=== PATIENT | female | born 1945 | race Two or more races ===

== ENCOUNTER 2019-01-02 12:06 | Observation (INO) | payer SELFPAY ==
--- NOTE | 2019-01-02 12:32 | ER Document Report ---
ED Medical Screen (RME) - General Chief Complaint: General Weakness Stated Complaint: FEVER Time Seen by Provider: 01/02/19 12:24 Mode of Arrival: Wheelchair Information source: Relative Notes: Patient presents with family with complaints of weakness and feeling off balance. Daughter states that patient is not able to walk because of the weakness. Patient does complain of some nausea no vomiting. Patient without any chest pain or shortness of breath. Patient does complain of numbness to fingers of left hand. Patient has had symptoms for the past 3 days. I have greeted and performed a rapid initial assessment of this patient. A comprehensive ED assessment and evaluation of the patient, analysis of test results and completion of the medical decision making process will be conducted by additional ED providers. TRAVEL OUTSIDE OF THE [place] IN LAST 30 DAYS: No - Related Data Allergies/Adverse Reactions: No Known Allergies Allergy (Verified 01/02/19 12:08) Physical Exam - Vital signs Vitals: Temp Pulse Resp BP Pulse Ox 98.0 F 75 14 145/80 H 95 01/02/19 12:15 01/02/19 12:15 01/02/19 12:15 01/02/19 12:15 01/02/19 12:15 - General General appearance: Alert Notes: Generalized weakness, subtle loss of left side nasolabial fold as compared to the right. - Cardiovascular Rhythm: Regular Heart sounds: S1 appreciated, S2 appreciated Course - Vital Signs Vital signs: Temp Pulse Resp BP Pulse Ox 98.0 F 75 14 145/80 H 95 01/02/19 12:15 01/02/19 12:15 01/02/19 12:15 01/02/19 12:15 01/02/19 12:15
--- NOTE | 2019-01-02 13:04 | RADIOLOGY REPORT (SQ) ---
EXAM DESCRIPTION: CT HEAD WITHOUT COMPLETED DATE/TIME: 01/02/2019 12:43 pm REASON FOR STUDY: weakness, numbness to L fingers COMPARISON: None. TECHNIQUE: Axial images acquired through the brain without intravenous contrast. Images reviewed wi th bone, brain and subdural windows. Additional sagittal and coronal reconstructions were generated. Images stored on PACS. All CT scanners at this facility use dose modulation, iterative reconstruction, and/or weight based d osing when appropriate to reduce radiation dose to as low as reasonably achievable (ALARA). [facility]: Dose Right [facility]: CareDose [facility]: Dose Right [facility]: Teradose 4D [facility]: Smart [employer] RADIATION DOSE: CT Rad equipment meets quality standard of care and radiation dose reduction techniq ues were employed. CTDIvol: 53.2 mGy. DLP: 1044 mGy-cm. mGy. LIMITATIONS: None. FINDINGS: VENTRICLES: Normal size and contour. CEREBRUM: No masses. No hemorrhage. No midline shift. No evidence for acute infarction. Normal gra y/white matter differentiation. No areas of low density in the white matter. CEREBELLUM: No masses. No hemorrhage. No alteration of density. No evidence for acute infarction. EXTRAAXIAL SPACES: No fluid collections. No masses. ORBITS AND GLOBE: No intra- or extraconal masses. Normal contour of globe without masses. CALVARIUM: No fracture. PARANASAL SINUSES: No fluid or mucosal thickening. SOFT TISSUES: No mass or hematoma. OTHER: No other significant finding. IMPRESSION: No acute intracranial pathology. EVIDENCE OF ACUTE STROKE: NO. COMMENT: Quality ID # [id number]: Final reports with documentation of one or more dose reduction techniques (e.g., Automated exposure control, adjustment of the mA and/or kV according to patient size, use of iterative reconstruction technique) TECHNICAL DOCUMENTATION: JOB ID: [id number] [employer]- All Rights Reserved Reading location - IP/workstation name: [email or web address]
--- NOTE | 2019-01-02 13:07 | RADIOLOGY REPORT (SQ) ---
EXAM DESCRIPTION: CHEST SINGLE VIEW COMPLETED DATE/TIME: 01/02/2019 12:45 pm REASON FOR STUDY: weakness, numbness to L fingers COMPARISON: None. EXAM PARAMETERS: NUMBER OF VIEWS: One view. TECHNIQUE: Single frontal radiographic view of the chest acquired. RADIATION DOSE: NA LIMITATIONS: None. FINDINGS: LUNGS AND PLEURA: No opacities, masses or pneumothorax. No pleural effusion. MEDIASTINUM AND HILAR STRUCTURES: No masses. Contour normal. HEART AND VASCULAR STRUCTURES: Heart normal in size. Normal vasculature. BONES: No acute findings. HARDWARE: None in the chest. OTHER: No other significant finding. IMPRESSION: NO ACUTE RADIOGRAPHIC FINDING IN THE CHEST. TECHNICAL DOCUMENTATION: JOB ID: [id number] [employer]- All Rights Reserved Reading location - IP/workstation name: [email or web address]
[2019-01-02 13:24] LABS: ABSOLUTE LYMPHOCYTES (AUTO) 2.2 10^3/uL (0.5-4.7); ABSOLUTE MONOCYTES (AUTO) 0.7 10^3/uL (0.1-1.4); ABSOLUTE NEUT (AUTO) 6.8 10^3/uL (1.7-8.2); BASOPHILS % (AUTO) 0.5 % (0-2); EOSINOPHILS % (AUTO) 0.4 % (0-6); HEMATOCRIT 43.9 % (36.0-47.0); HEMOGLOBIN 14.7 g/dL (12.0-15.5); LYMPHOCYTES % (AUTO) 22.3 % (13-45); MEAN CORPUSCULAR HEMOGLOBIN 27.9 pg (27.0-33.4); MEAN CORPUSCULAR HGB CONC 33.4 g/dL (32.0-36.0); MEAN CORPUSCULAR VOLUME 84 fl (80-97); MONOCYTES % (AUTO) 7.4 % (3-13); PLATELET COUNT 283 10^3/uL (150-450); RED BLOOD COUNT 5.26 10^6/uL (3.72-5.28); RED CELL DISTRIBUTION WIDTH 13.2 % (11.5-14.0); SEGMENTED NEUTROPHILS % (AUTO) 69.4 % (42-78); TOTAL CELLS COUNTED % (AUTO) 100 %; WHITE BLOOD COUNT 9.8 10^3/uL (4.0-10.5)
[2019-01-02 13:43] LABS: INTERNATIONAL RATION (INR) 1.04; PROTHROMBIN TIME 13.6 SEC (11.4-15.4)
[2019-01-02 13:44] LABS: PARTIAL THROMBOPLASTIN TIME 29.4 SEC (23.5-35.8)
[2019-01-02 13:55] LABS: ALANINE AMINOTRANSFERASE 32 U/L (9-52); ALBUMIN 4.7 g/dL (3.5-5.0); ALKALINE PHOSPHATASE 80 U/L (38-126); ANION GAP 10 (5-19); ASPARTATE AMINO TRANSFERASE 33 U/L (14-36); BILIRUBIN,DIRECT 0.2 mg/dL (0.0-0.4); BILIRUBIN,TOTAL 0.6 mg/dL (0.2-1.3); BLOOD UREA NITROGEN 12 mg/dL (7-20); CALCIUM 10.3 mg/dL (8.4-10.2); CARBON DIOXIDE 29 mmol/L (22-30); CHLORIDE 101 mmol/L (98-107); CREATINE KINASE 50 U/L (30-135); GLUCOSE 121 mg/dL (75-110); POTASSIUM 4.4 mmol/L (3.6-5.0); SODIUM 139.7 mmol/L (137-145); TOTAL PROTEIN 8.2 g/dL (6.3-8.2)
[2019-01-02 14:07] LABS: TROPONIN I < 0.012 ng/mL
--- NOTE | 2019-01-02 14:18 | ER Document Report ---
ED General - General Chief Complaint: General Weakness Stated Complaint: FEVER Time Seen by Provider: 01/02/19 12:24 Mode of Arrival: Wheelchair Notes: Patient is and indicates that she only speaks Yoruba. She is here with family members who are translating in her very fluent in [place] and Yoruba. Patient seems as if she understands quite a bit of what I am asking her as she is starting to answer before the family can ask her questions. Patient brought in because she has been running a fever since Tuesday. She has not had any strength, feeling very weak, difficulty walking. Has no appetite and not eating or drinking much. Yesterday, she seemed to have some problem with her balance. Has indicated that she is nauseated, but has not vomited. She her last bowel movement was this morning. Has not seen any blood in stools or in vomitus. She is had a little bit of a cough, but denies any chest pains. Complains of pain in the anterior aspect of both thighs, but not elsewhere of the lower extremities. Has no significant past medical history except for depression. Not on any prescription medications. TRAVEL OUTSIDE OF THE [place] IN LAST 30 DAYS: No - Related Data Allergies/Adverse Reactions: No Known Allergies Allergy (Verified 01/02/19 12:08) Past Medical History - General Information source: Relative - Social History Smoking Status: Never Smoker Chew tobacco use (# tins/day): No Frequency of alcohol use: None Drug Abuse: None Family History: Reviewed & Not Pertinent Patient has suicidal ideation: No Patient has homicidal ideation: No - Past Medical History Cardiac Medical History: Denies: Hx Coronary Artery Disease Psychiatric Medical History: Reports: Hx Depression Past Surgical History: Reports: Hx Section - x2 Review of Systems - Review of Systems Notes: REVIEW OF SYSTEMS: CONSTITUTIONAL : Reportedly has had fever. Generalized weakness. Poor appetite. EENT: Denies eye, ear, nose or mouth or throat pain or other symptoms. CARDIOVASCULAR: Denies chest pain. RESPIRATORY: Only has "a little cough", but denies much chest congestion, or shortness of breath. GASTROINTESTINAL: Some nausea but no abdominal pain or , vomiting, or diarrhea. GENITOURINARY: Denies difficulty or painful urinating, urinary frequency, blood in urine. MUSCULOSKELETAL: Denies back or neck pain. Denies joint pain or swelling. Complains of pain in the anterior aspect of both thighs, not the lower legs from the knees down. SKIN: Denies rash or skin lesions. NEUROLOGICAL: Denies LOC or altered mental status. Denies headache. Denies sensory loss or motor deficits. ALL OTHER SYSTEMS REVIEWED AND NEGATIVE. Physical Exam - Vital signs Vitals: Temp Pulse Resp BP Pulse Ox 98.0 F 75 14 145/80 H 95 01/02/19 12:15 01/02/19 12:15 01/02/19 12:15 01/02/19 12:15 01/02/19 12:15 Notes: PHYSICAL EXAMINATION: GENERAL: Well-appearing, in no acute distress. HEAD: Atraumatic, normocephalic. EYES: Pupils equal round and reactive to light, extraocular movements intact. ENT: oropharynx clear without exudates. Moist mucous membranes. NECK: Normal range of motion, supple. No bruits heard. LUNGS: Breath sounds clear and equal bilaterally. HEART: Regular rate and rhythm without murmurs. ABDOMEN: Soft, nontender. No guarding or rebound. No masses. BACK: No tenderness throughout entire back. EXTREMITIES: Normal range of motion without pain. NEUROLOGICAL: Awake and alert and, according to the family, oriented x3. Moves all 4 extremities equally. Good pattern hand bilaterally. PSYCH: Normal mood, normal affect. SKIN: Warm, dry, no rashes. Course - Re-evaluation Re-evalutation: 01/02/19 16:22 Patient's entire lab and imaging work-up are all essentially normal. No evidence of infection in her urine or chest. Blood work are all normal. CT scan of her head shows no stroke. I am at a loss for reason for the patient to be so weak. I attempted to have her stand with assistance by me and the nurse and she is not able to bear weight on either leg. She does not appear to have any lateralizing signs, but generalized weakness. Spoke with the hospitalist who will admit the patient for further evaluation. - Vital Signs Vital signs: Temp Pulse Resp BP Pulse Ox 98.0 F 75 22 H 124/74 99 01/02/19 12:15 01/02/19 12:15 01/02/19 16:01 01/02/19 16:00 01/02/19 16:01 - Laboratory Result Diagrams: 01/02/19 13:10 01/02/19 13:10 Laboratory results interpreted by me: 01/02/19 13:10 Glucose 121 H Calcium 10.3 H - EKG Interpretation by Me EKG shows normal: Sinus rhythm Rate: Normal Rhythm: NSR When compared to previous EKG there are: No significant change Discharge - Discharge Clinical Impression: Weakness Condition: Stable Disposition: ADMITTED INPATIENT Admitting Provider: meng Unit Admitted: Medical Floor
[2019-01-02 16:02] LABS: COLOR,URINE YELLOW
[2019-01-02 16:03] LABS: APPEARANCE,URINE CLEAR; BILIRUBIN,URINE NEGATIVE (NEGATIVE); GLUCOSE, URINE NEGATIVE (NEGATIVE); KETONES,URINE NEGATIVE (NEGATIVE); NITRITE,URINE NEGATIVE (NEGATIVE); PROTEIN,URINE NEGATIVE (NEGATIVE); URINE SPECIFIC GRAVITY 1.007; UROBILINOGEN,URINE NEGATIVE mg/dL (<2.0)
[2019-01-02 16:04] LABS: LEUKOCYTE ESTERASE,URINE NEGATIVE (NEGATIVE)
[2019-01-02] MEDS ORDERED: TEMAZEPAM 7.5 MG CAPSULE PO PRN (17:03)
[2019-01-02] MEDS ORDERED: SCOPOLAMINE HYDROBROMIDE 1.5 MG PATCH.TD72 TD PRN (17:07)
--- NOTE | 2019-01-02 17:14 | PDOC H&P ---
History of Present Illness Admission Date/PCP: 01/02/19, none Patient complains of: vertigo type symptoms x 2 days History of Present Illness: GLADYS MURRAY is a 73 year old female patient is interviewed with family present and they translate for her. seems she was walking and at her baseline tuesday. tuesday she started having some issues walking. it does not seem to be strength or sensation related on exam. it sounds like dizziness from vertigo that is worsened depending on her position. its best in the supine position. she has not had this issues before. nothing else makes it better or worse. she denies other related symptoms. no cp/sob. chronic x 3-4 days now. Past Medical History Cardiac Medical History: Denies: Coronary Artery Disease Psychiatric Medical History: Reports: Depression Past Surgical History Past Surgical History: Reports: Section - x2 Social History Smoking Status: Never Smoker - Advance Directive Resuscitation Status: Full Code Family History Family History: Reviewed & Not Pertinent, Hypertension Parental Family History Reviewed: Yes Children Family History Reviewed: Yes Sibling(s) Family History Reviewed.: Yes Medication/Allergy Allergies/Adverse Reactions: No Known Allergies Allergy (Verified 01/02/19 12:08) Review of Systems Constitutional: ABSENT: chills, fever(s), headache(s), weight gain, weight loss Eyes: ABSENT: visual disturbances Ears: ABSENT: hearing changes Cardiovascular: ABSENT: chest pain, dyspnea on exertion, edema, orthropnea, palpitations Respiratory: ABSENT: cough, hemoptysis Gastrointestinal: ABSENT: abdominal pain, constipation, diarrhea, hematemesis, hematochezia, nausea, vomiting Genitourinary: ABSENT: dysuria, hematuria Musculoskeletal: ABSENT: joint swelling Integumentary: ABSENT: rash, wounds Neurological: PRESENT: vertigo. ABSENT: abnormal gait, abnormal speech, confusion, dizziness, focal weakness, syncope Psychiatric: ABSENT: anxiety, depression, homidical ideation, suicidal ideation Endocrine: ABSENT: cold intolerance, heat intolerance, polydipsia, polyuria Hematologic/Lymphatic: ABSENT: easy bleeding, easy bruising Physical Exam Vital Signs: Temp Pulse Resp BP Pulse Ox 98.0 F 75 22 H 124/74 99 01/02/19 12:15 01/02/19 12:15 01/02/19 16:01 01/02/19 16:00 01/02/19 16:01 Intake & Output 01/01/19 01/02/19 01/03/19 06:59 06:59 06:59 Weight 53.6 kg General appearance: PRESENT: no acute distress, well-developed, well-nourished Head exam: PRESENT: atraumatic, normocephalic Eye exam: PRESENT: conjunctiva pink, EOMI, PERRLA. ABSENT: scleral icterus Ear exam: PRESENT: normal external ear exam Neck exam: ABSENT: carotid bruit, JVD, lymphadenopathy, thyromegaly Respiratory exam: PRESENT: clear to auscultation zamzam. ABSENT: rales, rhonchi, wheezes Cardiovascular exam: PRESENT: RRR. ABSENT: diastolic murmur, rubs, systolic murmur Pulses: PRESENT: normal dorsalis pedis pul Vascular exam: PRESENT: normal capillary refill GI/Abdominal exam: PRESENT: normal bowel sounds, soft. ABSENT: distended, guarding, mass, organolmegaly, rebound, tenderness Extremities exam: PRESENT: full ROM. ABSENT: calf tenderness, clubbing, pedal edema Musculoskeletal exam: PRESENT: full ROM Neurological exam: PRESENT: alert, awake, oriented to person, oriented to place, oriented to time, oriented to situation, CN II-XII grossly intact. ABSENT: motor sensory deficit Results Laboratory Results: 01/02/19 13:10 01/02/19 13:10 01/02/19 01/02/19 01/02/19 13:10 13:10 14:15 WBC 9.8 RBC 5.26 Hgb 14.7 Hct 43.9 MCV 84 MCH 27.9 MCHC 33.4 RDW 13.2 Plt Count 283 Seg Neutrophils % 69.4 Lymphocytes % 22.3 Monocytes % 7.4 Eosinophils % 0.4 Basophils % 0.5 Absolute Neutrophils 6.8 Absolute Lymphocytes 2.2 Absolute Monocytes 0.7 Absolute Eosinophils 0.0 Absolute Basophils 0.0 Sodium 139.7 Potassium 4.4 Chloride 101 Carbon Dioxide 29 Anion Gap 10 BUN 12 Creatinine 0.61 Est GFR ( Amer) > 60 Est GFR (Non-Af Amer) > 60 Glucose 121 H Calcium 10.3 H Total Bilirubin 0.6 AST 33 ALT 32 Alkaline Phosphatase 80 Total Protein 8.2 Albumin 4.7 Urine Color YELLOW Urine Appearance CLEAR Urine pH 5.0 Ur Specific [place] 1.007 Urine Protein NEGATIVE Urine Glucose (UA) NEGATIVE Urine Ketones NEGATIVE Urine Blood NEGATIVE Urine Nitrite NEGATIVE Ur Leukocyte Esterase NEGATIVE 01/02/19 01/02/19 13:10 13:10 Creatine Kinase 50 CK-MB (CK-2) 0.80 Troponin I < 0.012 Impressions: Chest X-Ray 01/02/19 12:30 IMPRESSION: NO ACUTE RADIOGRAPHIC FINDING IN THE CHEST. Head CT 01/02/19 12:30 IMPRESSION: No acute intracranial pathology. EVIDENCE OF ACUTE STROKE: NO. Assessment and Plan - Diagnosis (1) Vertigo Is this a current diagnosis for this admission?: Yes Plan: seems to be BPPV. needs moises hallpike maneuver. will ask PT to evaluate and see if they have staff that can perform. will order prn zofran and scopolamine for symptom relief. (2) Weakness Is this a current diagnosis for this admission?: Yes Plan: originally thought to be weakness seems to be related to vertigo. likely misinterpreted/mistaken because of language barrier - Time Time Spent with patient: 25-34 minutes Medications reviewed and adjusted accordingly: Yes Anticipated discharge: Home - Plan Summary Plan Summary: see if we can get her treated and get her home tomorrow. observation.
--- NOTE | 2019-01-02 21:27 | EKG REPORT ---
SEVERITY:- ABNORMAL ECG - SINUS RHYTHM LEFT VENTRICULAR HYPERTROPHY : Confirmed by: Dionne Angulo MD 02-Jan-2019 21:25:57
[2019-01-02] MEDS: ACETAMINOPHEN 325 MG TABLET PO PRN (22:26)
[2019-01-03 06:49] LABS: HEMOGLOBIN 13.9 g/dL (12.0-15.5); MEAN CORPUSCULAR HGB CONC 33.8 g/dL (32.0-36.0); MEAN CORPUSCULAR VOLUME 83 fl (80-97); PLATELET COUNT 271 10^3/uL (150-450); RED BLOOD COUNT 4.95 10^6/uL (3.72-5.28); RED CELL DISTRIBUTION WIDTH 13.2 % (11.5-14.0); WHITE BLOOD COUNT 7.2 10^3/uL (4.0-10.5)
[2019-01-03 07:10] LABS: ANION GAP 7 (5-19); BLOOD UREA NITROGEN 13 mg/dL (7-20); CALCIUM 10.1 mg/dL (8.4-10.2); CARBON DIOXIDE 29 mmol/L (22-30); CHLORIDE 104 mmol/L (98-107); CHOLESTEROL 175.86 mg/dL (0-200); GLUCOSE 110 mg/dL (75-110); POTASSIUM 4.3 mmol/L (3.6-5.0); SODIUM 140.3 mmol/L (137-145); TRIGLYCERIDES 147 mg/dL (<150)
[2019-01-03 07:21] LABS: DIRECT LDL 117 mg/dL (<100)
[2019-01-03] MEDS: ONDANSETRON 4 MG TAB.RAPDIS PO PRN (08:13)
--- NOTE | 2019-01-03 15:44 | PDOC PROGRESS REPORT ---
Subjective Progress Note for:: 01/03/19 Subjective:: patient had moises hallpike performed on her earlier by PT and relieved most of her vertigo. she is able to stand, but still feels dizzy. she continues to use daughter as table cover folder. she is improving. the prn meds help with nausea. will move towards d/c in am Reason For Visit: SYNCOPE,WEAKNESS Physical Exam Vital Signs: Temp Pulse Resp BP Pulse Ox 98.7 F 81 14 138/87 H 98 01/03/19 12:18 01/03/19 12:18 01/03/19 12:18 01/03/19 12:18 01/03/19 12:18 Intake & Output 01/02/19 01/03/19 01/04/19 06:59 06:59 06:59 Weight 53.1 kg General appearance: PRESENT: no acute distress, well-developed, well-nourished Head exam: PRESENT: atraumatic, normocephalic Eye exam: PRESENT: conjunctiva pink, EOMI, PERRLA. ABSENT: scleral icterus Ear exam: PRESENT: normal external ear exam Mouth exam: PRESENT: moist, tongue midline Neck exam: ABSENT: carotid bruit, JVD, lymphadenopathy, thyromegaly Respiratory exam: PRESENT: clear to auscultation zazmam. ABSENT: rales, rhonchi, wheezes Cardiovascular exam: PRESENT: RRR. ABSENT: diastolic murmur, rubs, systolic murmur Pulses: PRESENT: normal dorsalis pedis pul Vascular exam: PRESENT: normal capillary refill GI/Abdominal exam: PRESENT: normal bowel sounds, soft. ABSENT: distended, guarding, mass, organolmegaly, rebound, tenderness Rectal exam: PRESENT: deferred Extremities exam: PRESENT: full ROM. ABSENT: calf tenderness, clubbing, pedal edema Neurological exam: PRESENT: alert, awake, oriented to person, oriented to place, oriented to time, oriented to situation, CN II-XII grossly intact. ABSENT: motor sensory deficit Psychiatric exam: PRESENT: appropriate affect, normal mood. ABSENT: homicidal ideation, suicidal ideation Skin exam: PRESENT: dry, intact, warm. ABSENT: cyanosis, rash Results Laboratory Results: 01/03/19 06:31 01/03/19 06:31 07/09/19 07/10/19 07/10/19 14:15 06:31 06:31 WBC 7.2 RBC 4.95 Hgb 13.9 Hct 41.0 MCV 83 MCH 28.0 MCHC 33.8 RDW 13.2 Plt Count 271 Sodium 140.3 Potassium 4.3 Chloride 104 Carbon Dioxide 29 Anion Gap 7 BUN 13 Creatinine 0.56 Est GFR ( Amer) > 60 Est GFR (Non-Af Amer) > 60 Glucose 110 Calcium 10.1 Magnesium 2.0 Triglycerides 147 Cholesterol 175.86 LDL Cholesterol Direct 117 H VLDL Cholesterol 29.0 HDL Cholesterol 39 L TSH Urine Color YELLOW Urine Appearance CLEAR Urine pH 5.0 Ur Specific [place] 1.007 Urine Protein NEGATIVE Urine Glucose (UA) NEGATIVE Urine Ketones NEGATIVE Urine Blood NEGATIVE Urine Nitrite NEGATIVE Ur Leukocyte Esterase NEGATIVE 01/03/19 06:31 WBC RBC Hgb Hct MCV MCH MCHC RDW Plt Count Sodium Potassium Chloride Carbon Dioxide Anion Gap BUN Creatinine Est GFR ( Amer) Est GFR (Non-Af Amer) Glucose Calcium Magnesium Triglycerides Cholesterol LDL Cholesterol Direct VLDL Cholesterol HDL Cholesterol TSH 2.28 Urine Color Urine Appearance Urine pH Ur Specific [place] Urine Protein Urine Glucose (UA) Urine Ketones Urine Blood Urine Nitrite Ur Leukocyte Esterase 01/02/19 01/02/19 13:10 13:10 Creatine Kinase 50 CK-MB (CK-2) 0.80 Troponin I < 0.012 Impressions: Chest X-Ray 01/02/19 12:30 IMPRESSION: NO ACUTE RADIOGRAPHIC FINDING IN THE CHEST. Head CT 01/02/19 12:30 IMPRESSION: No acute intracranial pathology. EVIDENCE OF ACUTE STROKE: NO. Assessment and Plan - Diagnosis (1) Vertigo Is this a current diagnosis for this admission?: Yes Plan: seems to be BPPV. better after moises hallpike maneuver by PT. prn zofran and scopolamine for symptom relief. (2) Weakness Is this a current diagnosis for this admission?: Yes Plan: originally thought to be bilateral lower ext weakness seems to be related to vertigo. likely misinterpreted/mistaken because of language barrier (3) Prediabetes Is this a current diagnosis for this admission?: Yes Plan: a1c 6.1. risk of treating vs likely complications is relative. defer to outpatient pcp - Time Time Spent with patient: Less than 15 minutes Medications reviewed and adjusted accordingly: Yes Within: within 24 hours
--- NOTE | 2019-01-03 18:17 | RADIOLOGY REPORT (SQ) ---
EXAM DESCRIPTION: CT HEAD WITHOUT COMPLETED DATE/TIME: 01/03/2019 6:04 pm REASON FOR STUDY: Signs of Stroke COMPARISON: 01/02/2019 TECHNIQUE: Axial images acquired through the brain without intravenous contrast. Images reviewed wit h bone, brain and subdural windows. Images stored on PACS. All CT scanners at this facility use dose modulation, iterative reconstruction, and/or weight based d osing when appropriate to reduce radiation dose to as low as reasonably achievable (ALARA). [facility]: Dose Right [facility]: CareDose [facility]: Dose Right [facility]: Teradose 4D [facility]: Smart [employer] RADIATION DOSE: CT Rad equipment meets quality standard of care and radiation dose reduction techniq ues were employed. CTDIvol: 53.2 mGy. DLP: 991 mGy-cm.. LIMITATIONS: None. FINDINGS: VENTRICLES: Normal size and contour. CEREBRUM: No masses. No hemorrhage. No midline shift. Age appropriate white matter. No evidence for a cute infarction. CEREBELLUM: No masses. No hemorrhage. No alteration of density. No evidence for acute infarction. EXTRA-AXIAL SPACES: No fluid collections. ORBITS AND GLOBE: No intra- or extraconal masses. Normal contour of globe without masses. CALVARIUM: No fracture. PARANASAL SINUSES: Left maxillary sinus fluid. SOFT TISSUES: No mass or hematoma. OTHER: No other significant finding. IMPRESSION: NO ACUTE INTRACRANIAL FINDINGS.Left maxillary sinus fluid. EVIDENCE OF ACUTE STROKE: NO. TECHNICAL DOCUMENTATION: JOB ID: [id number] Quality ID # [id number]: Final reports with documentation of one or more dose reduction techniques (e.g., Au tomated exposure control, adjustment of the mA and/or kV according to patient size, use of iterative reconstruction technique) 2010 [employer]- All Rights Reserved Reading location - IP/workstation name: [email or web address]
[2019-01-03] MEDS: ACETAMINOPHEN 325 MG TABLET PO PRN (19:24)
[2019-01-03] MEDS: ASPIRIN 325 MG TABLET PO SCH (19:24)
[2019-01-04] MEDS: ASPIRIN 325 MG TABLET PO SCH (10:00)
--- NOTE | 2019-01-04 11:15 | RADIOLOGY REPORT (SQ) ---
EXAM DESCRIPTION: MRI HEAD WITHOUT COMPLETED DATE/TIME: 01/04/2019 10:42 am REASON FOR STUDY: stroke COMPARISON: 01/03/2019 TECHNIQUE: Multiplanar imaging includes non-contrasted T1, T2, FLAIR, and diffusion with ADC map seq uences. Images stored on PACS. LIMITATIONS: None. FINDINGS: ANATOMY: No anomalies. Normal vascular flow voids. Pituitary fossa normal. CSF SPACES: Normal in size and contour. No hemorrhage. CEREBRUM: Sulci and gyri normal in size and contour. Normal white matter signal on FLAIR imaging. No evidence of hemorrhage, mass, or extraaxial fluid collection. POSTERIOR FOSSA: No signal alteration. No hemorrhage. No edema, masses or mass effect. Internal sandro tory canals, cerebello-pontine angles, mastoids normal. DIFFUSION IMAGING: Negative for acute or sub-acute infarction. ORBITS: No masses. Globes normal. PARANASAL SINUSES: No fluid levels. Mucosa normal. OTHER: No other significant finding. IMPRESSION: NORMAL MRI OF THE BRAIN WITHOUT INTRAVENOUS GADOLINIUM CONTRAST. EVIDENCE OF ACUTE STROKE: NO. TECHNICAL DOCUMENTATION: JOB ID: [id number] [employer] All Rights Reserved Reading location - IP/workstation name: [email or web address]
--- NOTE | 2019-01-04 15:16 | PDOC PROGRESS REPORT ---
Subjective Subjective:: patient had episode of unilateral right sided weakness yesterday evening. CT Head was negative last night and MRI was negative today. Seems to be more of the perception of weakness than actual weakness. denies previous episodes. appetite has been poor for several weeks now. denies recent illness. vertigo symptoms are again bothering her. they are relieved with zofran Reason For Visit: SYNCOPE,WEAKNESS Physical Exam Vital Signs: Temp Pulse Resp BP Pulse Ox 98.4 F 74 14 126/75 H 93 01/04/19 11:43 01/04/19 11:43 01/04/19 11:43 01/04/19 11:43 01/04/19 11:43 Intake & Output 01/03/19 01/04/19 01/05/19 06:59 06:59 06:59 Output Total 400 Balance -400 Weight 53.1 kg 52 kg General appearance: PRESENT: no acute distress, well-developed, well-nourished Head exam: PRESENT: atraumatic, normocephalic Eye exam: PRESENT: conjunctiva pink, EOMI, PERRLA. ABSENT: scleral icterus Ear exam: PRESENT: normal external ear exam Mouth exam: PRESENT: moist, tongue midline Neck exam: ABSENT: carotid bruit, JVD, lymphadenopathy, thyromegaly Respiratory exam: PRESENT: clear to auscultation zamzam. ABSENT: rales, rhonchi, wheezes Cardiovascular exam: PRESENT: RRR. ABSENT: diastolic murmur, rubs, systolic murmur Pulses: PRESENT: normal dorsalis pedis pul Vascular exam: PRESENT: normal capillary refill GI/Abdominal exam: PRESENT: normal bowel sounds, soft. ABSENT: distended, guarding, mass, organolmegaly, rebound, tenderness Rectal exam: PRESENT: deferred Extremities exam: PRESENT: full ROM. ABSENT: calf tenderness, clubbing, pedal edema Neurological exam: PRESENT: alert, awake, oriented to person, oriented to place, oriented to time, oriented to situation, CN II-XII grossly intact. ABSENT: motor sensory deficit Psychiatric exam: PRESENT: appropriate affect, normal mood. ABSENT: homicidal ideation, suicidal ideation Skin exam: PRESENT: dry, intact, warm. ABSENT: cyanosis, rash Results Laboratory Results: 01/03/19 06:31 01/03/19 06:31 01/02/19 01/02/19 13:10 13:10 Creatine Kinase 50 CK-MB (CK-2) 0.80 Troponin I < 0.012 Impressions: Chest X-Ray 01/02/19 12:30 IMPRESSION: NO ACUTE RADIOGRAPHIC FINDING IN THE CHEST. Head CT 01/03/19 17:43 IMPRESSION: NO ACUTE INTRACRANIAL FINDINGS.Left maxillary sinus fluid. EVIDENCE OF ACUTE STROKE: NO. Head MRI 01/04/19 07:01 IMPRESSION: NORMAL MRI OF THE BRAIN WITHOUT INTRAVENOUS GADOLINIUM CONTRAST. EVIDENCE OF ACUTE STROKE: NO. Assessment and Plan - Diagnosis (1) Vertigo Is this a current diagnosis for this admission?: Yes Plan: thought to be BPPV, she reported improvement with moises hallpike maneuver, but now reporting zofran helps, and symptoms have returned (2) Weakness Is this a current diagnosis for this admission?: Yes Plan: unilateral, right sided perceived weakness. strength appears to be normal BLUE and BLLE. MRI and CT head negative. unsure of cause. check vitamin levels. could be flare of something like MS, although most disease process would have presented by now (3) Prediabetes Is this a current diagnosis for this admission?: Yes Plan: a1c 6.2. risk of treating vs likely complications is relative. defer to ou tpatient pcp - Time Time Spent with patient: 15-24 minutes Medications reviewed and adjusted accordingly: Yes Anticipated discharge: Home - Plan Summary Plan Summary: make sure that what is causing the weakness is not progressing, and that patient is stable for d/c
[2019-01-04] MEDS: ACETAMINOPHEN 325 MG TABLET PO PRN (21:15)
[2019-01-05 07:24] LABS: CHOLESTEROL 189.28 mg/dL (0-200); CREATINE KINASE 38 U/L (30-135); TRIGLYCERIDES 127 mg/dL (<150)
[2019-01-05 07:36] LABS: DIRECT LDL 124 mg/dL (<100)
[2019-01-05 08:25] LABS: FOLATE > 20.00 ng/mL (>2.76)
[2019-01-05] MEDS: ASPIRIN 325 MG TABLET PO SCH (09:08)
--- NOTE | 2019-01-05 10:30 | RADIOLOGY REPORT (SQ) ---
EXAM DESCRIPTION: CAROTID DOPPLER COMPLETED DATE/TIME: 01/04/2019 9:51 pm REASON FOR STUDY: stroke COMPARISON: None. TECHNIQUE: Grayscale ultrasound, Doppler velocity and spectra, and color Doppler images acquired of the extra-cranial carotid and vertebral arteries. Images stored on PACS. LIMITATIONS: None. FINDINGS: RIGHT CAROTID CCA Velocities: Within normal limits. ICA Velocities Peak systolic 0.56 m/s. End diastolic 0.18 m/s. Proximal ICA/CCA peak systolic ratio 0.9. Intimal thickening. LEFT CAROTID CCA Velocities: Within normal limits. ICA Velocities Peak systolic 0.67 m/s. End diastolic 0.22 m/s. Proximal ICA/CCA peak systolic ratio 1.6. Intimal thickening. VERTEBRAL ARTERIES: Antegrade flow. Normal waveforms. SUBCLAVIAN ARTERIES: Not imaged. OTHER: No other significant finding. IMPRESSION: NO HEMODYNAMICALLY SIGNIFICANT STENOSIS. COMMENT: Quality ID #[id number]: Velocity criteria are extrapolated from the diameter data as defined by t [place] Society of Radiologists in Ultrasound Consensus Conference. Radiology 2003: 229; 340-346. TECHNICAL DOCUMENTATION: JOB ID: [id number] [employer]- All Rights Reserved Reading location - IP/workstation name: [email or web address]
[2019-01-05] MEDS ORDERED: MECLIZINE HCL 12.5 MG TABLET PO PRN (13:14)
[2019-01-05] MEDS ORDERED: (PENDING PHARMACY ID) (Irbesartan [Avapro] 300 MG) PO SCH (15:30)
--- NOTE | 2019-01-05 16:52 | PDOC PROGRESS REPORT ---
Subjective Progress Note for:: 01/05/19 Subjective:: she is having RUE weakness today. other 3x strength is good. today its actually seems weak. will scan neck. continues to have vertigo will ask for help w/moises zhang pike maneuver. added meclizine for help with symptoms. unable to eat because of nausea. unable to stand because of nausea. bp high. restart home ARB Reason For Visit: SYNCOPE,WEAKNESS Physical Exam Vital Signs: Temp Pulse Resp BP Pulse Ox 98.7 F 74 16 148/83 H 96 01/05/19 12:00 01/05/19 14:00 01/05/19 12:00 01/05/19 12:00 01/05/19 12:00 Intake & Output 01/04/19 01/05/19 01/06/19 06:59 06:59 06:59 Intake Total 355 Output Total 400 640 400 Balance -400 -640 -45 Weight 52 kg 53.2 kg General appearance: PRESENT: cooperative, mild distress, thin Head exam: PRESENT: atraumatic, normocephalic Eye exam: PRESENT: conjunctiva pink, EOMI, PERRLA. ABSENT: scleral icterus Ear exam: PRESENT: normal external ear exam Mouth exam: PRESENT: moist, tongue midline Neck exam: ABSENT: carotid bruit, JVD, lymphadenopathy, thyromegaly Respiratory exam: PRESENT: clear to auscultation zamzam. ABSENT: rales, rhonchi, wheezes Cardiovascular exam: PRESENT: RRR. ABSENT: diastolic murmur, rubs, systolic murmur Pulses: PRESENT: normal dorsalis pedis pul Vascular exam: PRESENT: normal capillary refill GI/Abdominal exam: PRESENT: normal bowel sounds, soft. ABSENT: distended, guarding, mass, organolmegaly, rebound, tenderness Rectal exam: PRESENT: deferred Extremities exam: PRESENT: full ROM. ABSENT: calf tenderness, clubbing, pedal edema Musculoskeletal exam: PRESENT: full ROM, other - RUE full rom, normal sensation, but strength 4/5. Neurological exam: PRESENT: alert, awake, oriented to person, oriented to place, oriented to time, oriented to situation, CN II-XII grossly intact. ABSENT: motor sensory deficit Psychiatric exam: PRESENT: appropriate affect, normal mood. ABSENT: homicidal ideation, suicidal ideation Skin exam: PRESENT: dry, intact, warm. ABSENT: cyanosis, rash Results Laboratory Results: 01/03/19 06:31 01/03/19 06:31 01/05/19 01/05/19 06:13 06:13 Magnesium 2.2 Triglycerides 127 Cholesterol 189.28 LDL Cholesterol Direct 124 H VLDL Cholesterol 25.0 HDL Cholesterol 40 Vitamin B12 > 1000.0 H Folate > 20.00 TSH 0.93 01/02/19 01/02/19 01/05/19 13:10 13:10 06:13 Creatine Kinase 50 38 CK-MB (CK-2) 0.80 Troponin I < 0.012 Impressions: Chest X-Ray 01/02/19 12:30 IMPRESSION: NO ACUTE RADIOGRAPHIC FINDING IN THE CHEST. Head CT 01/03/19 17:43 IMPRESSION: NO ACUTE INTRACRANIAL FINDINGS.Left maxillary sinus fluid. EVIDENCE OF ACUTE STROKE: NO. Head MRI 01/04/19 07:01 IMPRESSION: NORMAL MRI OF THE BRAIN WITHOUT INTRAVENOUS GADOLINIUM CONTRAST. EVIDENCE OF ACUTE STROKE: NO. Carotid Doppler Study 01/04/19 09:00 IMPRESSION: NO HEMODYNAMICALLY SIGNIFICANT STENOSIS. Assessment and Plan - Diagnosis (1) Vertigo Is this a current diagnosis for this admission?: Yes Plan: unable to determine if moises hallpike ever performed. family originally said yes. today they say no.will re-consult PT for help with this. seems to be BPPV. symptomatic meds ordered. (2) Weakness Is this a current diagnosis for this admission?: Yes Plan: RUE today. on admission was BLLE. then its was Right side. no pattern. will scan neck to make sure that no physical obstructions. normal vitamin and electrolyte levels. continue to work with PT (3) Prediabetes Is this a current diagnosis for this admission?: Yes Plan: a1c 6.2. risk of treating vs likely complications is relative. defer to outpatient pcp - Time Time Spent with patient: 15-24 minutes Medications reviewed and adjusted accordingly: Yes Anticipated discharge: Home - Inpatient Certification Based on my medical assessment, after consideration of the patient's comorb idities, presenting symptoms, or acuity I expect that the services needed warrant INPATIENT care.: Yes I certify that my determination is in accordance with my understanding of Medicare's requirements for reasonable and necessary INPATIENT services [42 CFR 412.3e].: Yes
[2019-01-06] MEDS ORDERED: LOSARTAN POTASSIUM 50 MG TABLET PO SCH (10:00)
[2019-01-06] MEDS: ASPIRIN 325 MG TABLET PO SCH (10:49)
[2019-01-06] MEDS: ONDANSETRON 4 MG TAB.RAPDIS PO PRN (10:55)
--- NOTE | 2019-01-06 12:28 | RADIOLOGY REPORT (SQ) ---
EXAM DESCRIPTION: CERV SP 3 VIEW OR LESS COMPLETED DATE/TIME: 01/06/2019 8:39 am REASON FOR STUDY: right arm weakness COMPARISON: None. NUMBER OF VIEWS: Three views. TECHNIQUE: AP, lateral and odontoid radiographic images acquired of the cervical spine. LIMITATIONS: Limited visualization of C7. FINDINGS: MINERALIZATION: Normal. ALIGNMENT: Anatomic. VERTEBRAE: Vertebral bodies of normal height. DISCS: No significant disc space narrowing. No large osteophytes. HARDWARE: None in the spine. SOFT TISSUES: No masses or calcifications. Lung apices clear. OTHER: No other significant finding. IMPRESSION: NO SIGNIFICANT RADIOGRAPHIC FINDING IN THE CERVICAL SPINE. TECHNICAL DOCUMENTATION: JOB ID: [id number] [employer]- All Rights Reserved Reading location - IP/workstation name: [email or web address]
[2019-01-06 12:51] LABS: ABSOLUTE BASOPHILS # (AUTO) 0.1 10^3/uL (0.0-0.2); ABSOLUTE LYMPHOCYTES (AUTO) 2.7 10^3/uL (0.5-4.7); ABSOLUTE MONOCYTES (AUTO) 0.8 10^3/uL (0.1-1.4); ABSOLUTE NEUT (AUTO) 6.2 10^3/uL (1.7-8.2); BASOPHILS % (AUTO) 0.8 % (0-2); EOSINOPHILS % (AUTO) 0.2 % (0-6); HEMATOCRIT 43.6 % (36.0-47.0); HEMOGLOBIN 14.8 g/dL (12.0-15.5); LYMPHOCYTES % (AUTO) 27.3 % (13-45); MEAN CORPUSCULAR HEMOGLOBIN 28.2 pg (27.0-33.4); MEAN CORPUSCULAR VOLUME 83 fl (80-97); MONOCYTES % (AUTO) 8.5 % (3-13); PLATELET COUNT 270 10^3/uL (150-450); RED BLOOD COUNT 5.26 10^6/uL (3.72-5.28); RED CELL DISTRIBUTION WIDTH 13.3 % (11.5-14.0); SEGMENTED NEUTROPHILS % (AUTO) 63.2 % (42-78); TOTAL CELLS COUNTED % (AUTO) 100 %; WHITE BLOOD COUNT 9.7 10^3/uL (4.0-10.5)
[2019-01-06 13:09] LABS: ALANINE AMINOTRANSFERASE 25 U/L (9-52); ALBUMIN 4.7 g/dL (3.5-5.0); ALKALINE PHOSPHATASE 71 U/L (38-126); ANION GAP 13 (5-19); ASPARTATE AMINO TRANSFERASE 33 U/L (14-36); BILIRUBIN,DIRECT 0.3 mg/dL (0.0-0.4); BILIRUBIN,TOTAL 0.7 mg/dL (0.2-1.3); BLOOD UREA NITROGEN 14 mg/dL (7-20); CALCIUM 10.3 mg/dL (8.4-10.2); CARBON DIOXIDE 27 mmol/L (22-30); CHLORIDE 100 mmol/L (98-107); CREATINE KINASE 27 U/L (30-135); GLUCOSE 127 mg/dL (75-110); POTASSIUM 4.4 mmol/L (3.6-5.0); SODIUM 140.3 mmol/L (137-145); TOTAL PROTEIN 8.5 g/dL (6.3-8.2)
[2019-01-06 13:52] LABS: CREATINE KINASE MB < 0.22 ng/mL (<4.55); TROPONIN I < 0.012 ng/mL
[2019-01-06 14:47] LABS: FOLATE > 20.00 ng/mL (>2.76)
[2019-01-06 20:07] LABS: APPEARANCE,URINE CLOUDY; BILIRUBIN,URINE NEGATIVE (NEGATIVE); COLOR,URINE YELLOW; GLUCOSE, URINE NEGATIVE (NEGATIVE); KETONES,URINE NEGATIVE (NEGATIVE); LEUKOCYTE ESTERASE,URINE MODERATE (NEGATIVE); NITRITE,URINE NEGATIVE (NEGATIVE); PROTEIN,URINE NEGATIVE (NEGATIVE); URINE SPECIFIC GRAVITY 1.015; UROBILINOGEN,URINE NEGATIVE mg/dL (<2.0)
--- NOTE | 2019-01-06 20:11 | PDOC TRANSFER SUMMARY ---
General Admission Date/PCP: 01/02/19 18:27 Resuscitation Status: Full Code - Transfer Diagnosis (1) Weakness Is this a current diagnosis for this admission?: Yes Diagnosis Summary: Patient was admitted to [facility] on 01/02/2019. She initially presented with right arm weakness and was admitted for stroke evaluation. The patient and family related to me that she is from [place] and is here visiting her family. A couple of weeks ago she underwent molar removal in her town in [place] and shortly thereafter got on a bus and spent 3 days traveling to the [place]. It sounds like she has had some low-grade intermittent fevers over this time period. She developed weakness the day she arrived that started in the right arm and was admitted for that reason and over the course of her stay here, during the work-up for a possible stroke, the patient has become profoundly more and more weak. Evaluation for cardiac etiology with troponins has been negative. Blood cultures have been ordered and are negative to date. Her urinalysis is negative for infection. Basic sd tabolic panel, LFTs, CBC are all normal. Sed rate is normal. Her other test pending such as aldolase, LDH, BRITNEY. However, secondary to her worsening weakness of unclear etiology I spoke with the neurology service at [facility] and she has been accepted for transfer by Dr. Parrish. For stroke work-up the patient had CT scan of the head, MRI of the brain without contrast, carotid duplexall of these were normal without signs of acute stroke also. Chest x-ray normal. Plain films of the C-spine without significant findings. (2) Fever Is this a current diagnosis for this admission?: Yes Diagnosis Summary: Intermittent and low-grade. Of note she had a molar removed in her hometown in [place] 1 to 2 weeks ago, just prior to a long bus ride to [place] to visit with family. White blood cell count has been normal. Blood and urine cultures negative and pending. Of note, the patient's daughter told me that patient's brother in [place] not long ago with complications related to TB. The patient states she has never had TB. Her chest x-ray is clear. She is not coughing. We did not place a PPD. May need to be further evaluated. (3) Prediabetes Is this a current diagnosis for this admission?: Yes Diagnosis Summary: Hemoglobin A1c normal. (4) Vertigo Is this a current diagnosis for this admission?: Yes Diagnosis Summary: Patient has had episodes of vertigo during the hospitalization. She is responding well to meclizine. The vertigo has also intermittently caused nausea, she has responded well to Zofran. (5) Anorexia Is this a current diagnosis for this admission?: Yes Diagnosis Summary: Patient has been unable to eat secondary to nausea, dizziness, weakness. Her family said she ate some apples and drink some juice today. - Transfer Medications Transfer Medications: Current Medications Acetaminophen (Tylenol 325 Mg Tablet) 650 mg PO Q4HP PRN PRN Reason: FOR HEADACHE OR PAIN Stop: 02/01/19 17:02 Last Admin: 01/04/19 21:15 Dose: 650 mg Documented by: Aspirin (Aspirin 325 Mg Tablet) 325 mg PO DAILY [facility] Stop: 02/02/19 19:59 Last Admin: 01/06/19 10:49 Dose: 325 mg Documented by: Losartan Potassium (Cozaar 50 Mg Tablet) 100 mg PO DAILY DEBBIE Stop: 02/05/19 09:59 Last Admin: 01/06/19 10:49 Dose: 100 mg Documented by: Meclizine HCl (Antivert 12.5 Mg Tablet) 12.5 mg PO Q8HP PRN PRN Reason: DIZZINESS Stop: 02/04/19 13:13 Last Admin: 01/05/19 21:23 Dose: 12.5 mg Documented by: Ondansetron HCl (Zofran Odt 4 Mg Tablet) 4 mg PO Q8HP PRN PRN Reason: FOR NAUSEA/VOMITING Stop: 02/01/19 17:02 Last Admin: 01/06/19 10:55 Dose: 4 mg Documented by: Sodium Chloride (Saline Flush 2.5 Ml Monoject Prefil Syrin) 2.5 ml IV Q8 DEBBIE Stop: 02/01/19 21:59 Last Admin: 01/06/19 14:05 Dose: 2.5 ml Documented by: Temazepam (Restoril 7.5 Mg Capsule) 7.5 mg PO HSP PRN PRN Reason: SLEEP OR INSOMNIA Stop: 01/09/19 17:02 Last Admin: 01/05/19 21:23 Dose: 7.5 mg Documented by: - Allergies Allergies/Adverse Reactions: No Known Allergies Allergy (Verified 01/02/19 12:08) - Diet/Activity Discharge Diet: As Tolerated Hospital Course Hospital Course: Please see hospital course by problem list. Physical Exam Vital Signs: Temp Pulse Resp BP Pulse Ox 98.2 F 82 16 123/60 96 01/06/19 15:28 01/06/19 15:28 01/06/19 15:28 01/06/19 15:28 01/06/19 15:28 Intake & Output 01/05/19 01/06/19 01/07/19 06:59 06:59 06:59 Intake Total 923 952 Output Total 640 950 500 Balance -640 -27 452 Weight 53.2 kg 52.4 kg General appearance: PRESENT: cooperative, mild distress, thin Head exam: PRESENT: atraumatic, normocephalic Eye exam: PRESENT: EOMI. ABSENT: conjunctival injection, nystagmus, scleral icterus Ear exam: PRESENT: normal external ear exam Mouth exam: PRESENT: moist, tongue midline Neck exam: ABSENT: lymphadenopathy, tenderness, tracheostomy Respiratory exam: PRESENT: clear to auscultation zamzam. ABSENT: rales, rhonchi, unlabored, wheezes Cardiovascular exam: PRESENT: RRR. ABSENT: systolic murmur Pulses: PRESENT: normal radial pulses Vascular exam: PRESENT: normal capillary refill GI/Abdominal exam: PRESENT: normal bowel sounds, soft. ABSENT: distended, tenderness Rectal exam: PRESENT: deferred Gentrourinary exam: ABSENT: indwelling catheter Extremities exam: ABSENT: pedal edema Musculoskeletal exam: PRESENT: normal inspection Neurological exam: PRESENT: alert, awake, oriented to person, oriented to place, oriented to situation, CN II-XII grossly intact, other - Listless Psychiatric exam: PRESENT: flat affect, other - Possible undiagnosed depression. ABSENT: anxious Skin exam: PRESENT: other - She has intermittently had cool skin and diaphoresis. Mostly her skin has been warm and dry however. Results Laboratory Results: 01/06/19 12:35 01/06/19 12:35 01/06/19 01/06/19 01/06/19 12:35 12:35 12:35 WBC 9.7 RBC 5.26 Hgb 14.8 Hct 43.6 MCV 83 MCH 28.2 MCHC 34.0 RDW 13.3 Plt Count 270 Seg Neutrophils % 63.2 Lymphocytes % 27.3 Monocytes % 8.5 Eosinophils % 0.2 Basophils % 0.8 Absolute Neutrophils 6.2 Absolute Lymphocytes 2.7 Absolute Monocytes 0.8 Absolute Eosinophils 0.0 Absolute Basophils 0.1 Sodium 140.3 Potassium 4.4 Chloride 100 Carbon Dioxide 27 Anion Gap 13 BUN 14 Creatinine 0.51 L Est GFR ( Amer) > 60 Est GFR (Non-Af Amer) > 60 Glucose 127 H Calcium 10.3 H Magnesium 2.3 Total Bilirubin 0.7 AST 33 ALT 25 Alkaline Phosphatase 71 Total Protein 8.5 H Albumin 4.7 Vitamin B12 > 1000.0 H Folate > 20.00 01/02/19 01/02/19 01/05/19 13:10 13:10 06:13 Creatine Kinase 50 38 CK-MB (CK-2) 0.80 Troponin I < 0.012 01/06/19 01/06/19 01/06/19 12:35 12:35 12:35 Creatine Kinase 27 L Cancelled CK-MB (CK-2) < 0.22 Troponin I < 0.012 Impressions: Chest X-Ray 01/02/19 12:30 IMPRESSION: NO ACUTE RADIOGRAPHIC FINDING IN THE CHEST. Head CT 01/03/19 17:43 IMPRESSION: NO ACUTE INTRACRANIAL FINDINGS.Left maxillary sinus fluid. EVIDENCE OF ACUTE STROKE: NO. Head MRI 01/04/19 07:01 IMPRESSION: NORMAL MRI OF THE BRAIN WITHOUT INTRAVENOUS GADOLINIUM CONTRAST. EVIDENCE OF ACUTE STROKE: NO. Carotid Doppler Study 01/04/19 09:00 IMPRESSION: NO HEMODYNAMICALLY SIGNIFICANT STENOSIS. Cervical Spine X-Ray 01/06/19 08:00 IMPRESSION: NO SIGNIFICANT RADIOGRAPHIC FINDING IN THE CERVICAL SPINE. Plan Discharge Plan: Transfer to [facility] in [facility]. Dr. Parrish with neurology has accepted her for transfer. Time Spent: Greater than 30 Minutes
[2019-01-06 20:49] VITALS: BP 112/62
--- NOTE | 2019-01-06 21:16 | XCELERA REPORT ---
[address] [address] Transthoracic Echocardiogram Report Name: GLADYS MURRAY Age: 73 yrs Gender: Female : 1945 Patient Status: Inpatient Patient Location: [address] [place] [address] Study Date: 01/04/2019 05:28 PM Height: 59 in Weight: 117 lb BSA: 1.5 m2 Procedure: A two-dimensional transthoracic echocardiogram with color flow and Doppler was performed. Study Quality: Technically suboptimal. Images were not obtained from all of the standard acoustic windows due to the limited scope of the study. Poor endocardial visualisation and poor doppler interogation. Reason For Study: CVA History: CVA. Ordering Physician: RICHAR QUAN Performed By: Carrie Harrison Interpretation Summary There is no obvious cardiac source of embolus noted on this transthoracic echocardiogram. Follow-up with a MUKESH is suggested if cardiac source is still suspected. Poor endocardial visualisation and poor doppler interogation. The left ventricle is grossly normal size. There is normal left ventricular wall thickness. No True apical 2 chamber views obtained.Hence cannot comment on the apical anterior , the basal anterior, the basal inferior and apical inferior velazquez.The mid anterior , the mid inferior and the rest of the LV velazquez contract normally. . LVEF is normal and is greater than 60% in the limited views. Doppler measurements suggest impaired left ventricular relaxation, which is associated with grade I/IV or mild diastolic dysfunction Not a good study to asss for ASD,VSD or PFO. The right ventricle is not well visualized secondary to technical limitations Right atrium not well visualized secondary to technical limitations The left atrial size is normal. There is no evidence of mitral valve prolapse. There is no mitral valve stenosis. There is no aortic valve stenosis No aortic regurgitation is present. There is no tricuspid stenosis. Probably Trace TR.RVSP is normal at 22 to 27 mm of Hg , with RA mean of 5 to 10. The aortic root is normal size. The inferior vena cava appeared normal and decreased > 50% with respiration (RAP 5-10 mmHg) There is no pericardial effusion. There is no obvious cardiac source of embolus noted on this transthoracic echocardiogram. Follow-up with a MUKESH is suggested if cardiac source is still suspected MMode/2D Measurements & Calculations RVDd: 2.5 cm LVIDd: 4.3 cm FS: 31.0 % Ao root diam: 2.8 cm IVSd: 0.80 cm LVIDs: 3.0 cm EDV(Teich): Ao root area: LVPWd: 0.71 cm 85.0 ml 6.0 cm2 ESV(Teich): LA dimension: 2.9 cm 34.9 ml EF(Teich): 59.0 % LVLd ap4: 5.8 cm SV(MOD-sp4): EDV(MOD-sp4): 40.0 ml 57.0 ml LVLs ap4: 4.2 cm ESV(MOD-sp4): 17.0 ml EF(MOD-sp4): 70.2 % Doppler Measurements & Calculations MV E max catherine: MV P1/2t max catherine: Ao V2 max: LV V1 max P.0 cm/sec 61.5 cm/sec 99.1 cm/sec 2.6 mmHg MV A max catherine: MV P1/2t: 45.4 msec Ao max PG: LV V1 max: 77.9 cm/sec MVA(P1/2t): 4.8 cm2 3.9 mmHg 80.2 cm/sec MV E/A: 0.60 MV dec slope: 397.2 cm/sec2 MV dec time: 0.20 sec TV V2 max: PA V2 max: TR max catherine: MV P1/2t-pr_phl: 61.4 cm/sec 83.8 cm/sec 207.9 cm/sec 45.4 msec TV max PG: PA max P.8 mmHg TR max P.6 mmHg 17.3 mmHg Left Ventricle The left ventricle is grossly normal size. There is normal left ventricular wall thickness. No True apical 2 chamber views obtained.Hence cannot comment on the apical anterior , the basal anterior, the basal inferior and apical inferior velazquez.The mid anterior , the mid inferior and the rest of the LV velazquez contract normally. . LVEF is normal and is greater than 60% in the limited views. Doppler measurements suggest impaired left ventricular relaxation, which is associated with grade I/IV or mild diastolic dysfunction. Not a good study to asss for ASD,VSD or PFO. Right Ventricle The right ventricle is not well visualized secondary to technical limitations. Atria Right atrium not well visualized secondary to technical limitations. The left atrial size is normal. Mitral Valve There is no evidence of mitral valve prolapse. There is no mitral valve stenosis. There is no mitral regurgitation noted. Aortic Valve There is no aortic valve stenosis. No aortic regurgitation is present. Tricuspid Valve There is no tricuspid stenosis. Probably Trace TR.RVSP is normal at 22 to 27 mm of Hg , with RA mean of 5 to 10. Pulmonic Valve The pulmonic valve is not well visualized. Great Vessels The aortic root is normal size. The inferior vena cava appeared normal and decreased > 50% with respiration (RAP 5-10 mmHg). Effusions There is no pericardial effusion. : RICHAR QUAN > Dionne Angulo
== END 2019-01-06 21:42 | disposition short-term general hospital (02) ==
LOC: ER 12:06 → EH 18:27 → INTOOBSV 18:27 → 2S 20:18 → 3S 01-03 21:19
PROVIDERS: ADMIT Hospitalist; ATTEND Hospitalist
DX: R53.1 Weakness (principal); R50.9 Fever, unspecified; R73.03 Prediabetes; R42 Dizziness and giddiness; R63.0 Anorexia; Z98.818 Other dental procedure status; R11.0 Nausea; R61 Generalized hyperhidrosis; R05 Cough; M79.652 Pain in left thigh; M79.651 Pain in right thigh; R20.0 Anesthesia of skin; R26.2 Difficulty in walking, not elsewhere classified; Z82.49 Family history of ischemic heart disease and other diseases of the circulatory system
CPT/HCPCS: 93005; 99285; 51701; 36415 ×4; 87040; 87086; 82553 ×2; 82085; 82607 ×2; 82550 ×3; 82746 ×2; 83615; 83735 ×3; 84443 ×2; 85025 ×2; 85027; 85652; 85610; 85730; 87088; 80048; 80053 ×2; 81001 ×2; 84484 ×2; 87186; 83036; 80061 ×2; 93306; 93880; 70551; 72040; 71045; 70450 ×2; 93010; 97163; G0378 ×6; S0119 ×2; J3490 ×7